=== PATIENT | female | born 1965 | race Hispanic/Latino ===

== ENCOUNTER 2017-09-20 17:02 | Emergency (ER) | payer MEDICAID ==
[2017-09-20 17:02] VITALS: BMI 19.1
[2017-09-20 18:12] VITALS: RESP 18; O2SAT 98
--- NOTE | 2017-09-20 18:39 | C.PDOC ---
History Of Present Illness 52 year old female with PMHx of asthma, seizures and bipolar disorder presents to the ED for evaluation of her depression and SI ideations. Patient states she is intermittent complaint with her bipolar medication Seroquel and see her psychiatrist Dr. Cardenas. Patient reports she snorts heroin and her last use was today OPHTHALMIC TECH. Patient reports she lives with her mother, she believes there are witches in her family that cursed her. Patient reports she has tried to hurt herself in the past. Patient denies fever, chills, nausea, vomit, diarrhea, abdominal pain, CP, SOB. Time Seen by Provider: 09/20/17 18:24 Chief Complaint (Nursing): Psychiatric Evaluation History Per: Patient History/Exam Limitations: no limitations Onset/Duration Of Symptoms: Hrs Suicide/Self Injury Attempted (Context): Cut Wrists Modifying Factor(s): Other (Heroin) Associated Symptoms: Depression, Suicidal Thoughts. denies: Suicidal Plan Involuntary Hold By: None Recent travel outside of the [place]: No Additional History Per: Patient Past Medical History Reviewed: Historical Data, Nursing Documentation, Vital Signs Vital Signs: Last Vital Signs Temp 97.8 F 09/20/17 18:07 Pulse 81 09/20/17 18:07 Resp 18 09/20/17 18:07 BP 122/77 09/20/17 18:07 Pulse Ox 98 09/20/17 18:41 - Medical History PMH: Anxiety, Asthma, Bipolar Disorder, Seizures (as a child) Denies: Depression, Chronic Kidney Disease Surgical History: No Surg Hx - [facility] Procedures NEBULIZER THERAPY (03/15/15) Family History: States: Unknown Family Hx - Social History Hx Tobacco Use: Yes Hx Alcohol Use: No Hx Substance Use: Yes (LAST USED TODAY) - Immunization History Hx Tetanus Toxoid Vaccination: No Hx Influenza Vaccination: No Hx Pneumococcal Vaccination: No Review Of Systems Constitutional: Negative for: Fever, Chills Cardiovascular: Negative for: Chest Pain, Palpitations Respiratory: Negative for: Cough, Shortness of Breath Gastrointestinal: Negative for: Nausea, Vomiting, Abdominal Pain Musculoskeletal: Negative for: Back Pain Skin: Negative for: Rash Neurological: Negative for: Weakness, Numbness Psych: Positive for: Depression, Suicidal ideation Physical Exam - Physical Exam Appears: Non-toxic, No Acute Distress Skin: Normal Color, Warm, Dry Head: Atraumatic, Normacephalic Nose: No Discharge, No Deformity Oral Mucosa: Moist Neck: Normal ROM, Supple Chest: Symmetrical Cardiovascular: Rhythm Regular, No Murmur Respiratory: Normal Breath Sounds, No Rales, No Rhonchi, No Wheezing Gastrointestinal/Abdominal: Soft, No Tenderness, No Distention, No Rebound Extremity: Normal ROM, No Pedal Edema, No Calf Tenderness, No Swelling Neurological/Psych: Oriented x3, Normal Speech, Normal Cognition Gait: Steady ED Course And Treatment - Laboratory Results Result Diagrams: 09/20/17 18:31 O2 Sat by Pulse Oximetry: 98 (On RA) Pulse Ox Interpretation: Normal Medical Decision Making Medical Decision Making: Impression : 52 y/o female depressed, used heroin with SI ideations. Plan: * Blood work * UA * Crisis contacted Disposition - Disposition Disposition Time: 18:53 Condition: STABLE Forms: [facility] (Upper Sorbian) - Clinical Impression Clinical Impression: Bipolar 1 disorder, Opioid abuse - Scribe Statement The provider has reviewed the documentation as recorded by the Scribe Burak Maradiaga All medical record entries made by the Scribe were at my direction and personally dictated by me. I have reviewed the chart and agree that the record accurately reflects my personal performance of the history, physical exam, medical decision making, and the department course for this patient. I have also personally directed, reviewed, and agree with the discharge instructions and disposition. Physician Patient Turnover Patient Signed Over To: Dario Reed Handoff Comments: pending medical clearance and crisis dispo
[2017-09-20 18:42] LABS: BASO % 0.9 % (0.0-2.0); EOS # 0.1 K/uL (0.0-0.7); EOS % 2.9 % (0.0-4.0); HEMATOCRIT 38.5 % (34.0-47.0); LYMPH # 1.7 K/uL (1.0-4.3); LYMPH % 39.6 % (20.0-40.0); MEAN CELL VOLUME 94.2 fL (81.0-99.0); MEAN CORPUSCULAR HEMOGLOBIN 32.1 pg (27.0-31.0); MEAN CORPUSCULAR HGB CONC 34.1 g/dL (33.0-37.0); MEAN PLATELET VOLUME 9.1 fL (7.2-11.7); MONO # 0.4 K/uL (0.0-0.8); MONO % 9.1 % (0.0-10.0); NRBC % 0.1 % (0.0-2.0); WHITE BLOOD COUNT 4.3 K/uL (4.8-10.8)
[2017-09-20 19:06] LABS: ALB/GLOB RATIO 1.1 (1.0-2.1); ALCOHOL SERUM < 10 mg/dl (0-10); ALKALINE PHOSPHATASE 71 U/L (38-126); ALT/SGPT 16 U/L (9-52); AST/SGOT 19 U/L (14-36); BILIRUBIN,TOTAL 0.5 mg/dL (0.2-1.3); BLOOD UREA NITROGEN 10 mg/dL (7-17); CALCIUM 8.5 mg/dl (8.6-10.4); CARBON DIOXIDE 31 mmol/L (22-30); CHLORIDE 98 mmol/L (98-107); GFR AFRICAN-AMERICAN > 60; GLUCOSE,RANDOM 95 mg/dL (65-105); POTASSIUM 4.1 mmol/L (3.6-5.2); SODIUM 134 mmol/L (132-148); TOTAL PROTEIN 7.5 g/dL (6.3-8.3)
[2017-09-20 19:35] LABS: RBC URINE 1 /hpf (0-3); URINE BACTERIA RARE (<OCC); URINE BILIRUBIN NEGATIVE (NEGATIVE); URINE BLOOD NEGATIVE (NEGATIVE); URINE COLOR Yellow (YELLOW); URINE GLUCOSE (UA) NORMAL (Normal); URINE KETONE NEGATIVE (NEGATIVE); URINE LEUKOCYTE ESTERASE NEG Leu/uL (Negative); URINE PROTEIN NEGATIVE (NEGATIVE); URINE UROBILINOGEN NORMAL mg/dL (0.2-1.0); WBC URINE < 1 /hpf (0-5)
[2017-09-20 23:33] VITALS: BP 135/86; PULSE 73; TEMP 97.7
== END 2017-09-20 23:55 | disposition home or self-care (01) ==
LOC: C.ER 17:02
DX: F31.9 Bipolar disorder, unspecified (principal); F11.10 Opioid abuse, uncomplicated

== ENCOUNTER 2017-09-22 17:11 | Inpatient (IN) | payer MEDICAID ==
[2017-09-22 17:18] VITALS: BMI 19.3
--- NOTE | 2017-09-22 17:41 | C.PDOC ---
History Of Present Illness 52 y/o female presents to ED for heroin detox. Patient states she uses 5 bags of heroin intranasal daily and reports last using earlier today. Patient was seen 2 days ago at ED requesting detox but no beds available. Patient then stated she was hearing voices and presents today pre screened for detox. No other physical complaints at this time. Time Seen by Provider: 09/22/17 17:22 Chief Complaint (Nursing): Substance Abuse History Per: Patient History/Exam Limitations: no limitations Onset/Duration Of Symptoms: Days Current Symptoms Are (Timing): Still Present Suicide/Self Injury Attempted (Context): None Past Medical History Reviewed: Historical Data, Nursing Documentation, Vital Signs Vital Signs: Last Vital Signs Temp 98.0 F 09/22/17 17:18 Pulse 87 09/22/17 17:18 Resp 17 09/22/17 17:18 BP 136/83 09/22/17 17:18 Pulse Ox 99 09/22/17 17:42 - Medical History PMH: Anxiety, Asthma, Bipolar Disorder, Seizures (as a child) Surgical History: No Surg Hx - [facility] Procedures NEBULIZER THERAPY (03/15/15) Family History: States: No Known Family Hx - Social History Hx Tobacco Use: Yes Hx Alcohol Use: No Hx Substance Use: Yes (LAST USED TODAY) - Immunization History Hx Tetanus Toxoid Vaccination: No Hx Influenza Vaccination: No Hx Pneumococcal Vaccination: No Review Of Systems Constitutional: Negative for: Fever Cardiovascular: Negative for: Chest Pain Respiratory: Negative for: Shortness of Breath Gastrointestinal: Negative for: Nausea, Vomiting Skin: Negative for: Rash Physical Exam - Physical Exam Appears: Non-toxic, No Acute Distress Skin: Normal Color, Warm, Dry, No Rash Head: Atraumatic, Normacephalic Oral Mucosa: Moist Neck: Supple Cardiovascular: Rhythm Regular Respiratory: Normal Breath Sounds, No Rales, No Rhonchi, No Wheezing Gastrointestinal/Abdominal: Soft, No Tenderness, No Guarding, No Rebound Extremity: Normal ROM, Capillary Refill (<2 seconds) Neurological/Psych: Oriented x3 ED Course And Treatment - Laboratory Results Result Diagrams: 09/22/17 17:59 09/22/17 17:59 Lab Interpretation: Abnormal (tox + Barbiturates (Fioricet), opiates, benzo's. ASA/Tylenol neg.) O2 Sat by Pulse Oximetry: 99 (RA) Pulse Ox Interpretation: Normal Medical Decision Making Medical Decision Making: prescreen for opiate detox tox + opiates, benzo's and Barbiturates. Disposition Doctor Will See Patient In The: Hospital Counseled Patient/Family Regarding: Studies Performed, Diagnosis - Disposition Disposition: HOSPITALIZED Disposition Time: 19:21 Condition: GOOD Forms: [facility] (Malaysian) - Clinical Impression Clinical Impression: Opiate dependence, continuous - Scribe Statement The provider has reviewed the documentation as recorded by the Jevon Lomeli All medical record entries made by the Daliibalexsandra were at my direction and personally dictated by me. I have reviewed the chart and agree that the record accurately reflects my personal performance of the history, physical exam, medical decision making, and the department course for this patient. I have also personally directed, reviewed, and agree with the discharge instructions and disposition.
[2017-09-22 18:03] LABS: BASO # 0.1 K/uL (0.0-0.2); BASO % 0.8 % (0.0-2.0); HEMATOCRIT 39.5 % (34.0-47.0); LYMPH # 1.2 K/uL (1.0-4.3); LYMPH % 18.9 % (20.0-40.0); MEAN CELL VOLUME 93.7 fL (81.0-99.0); MEAN CORPUSCULAR HEMOGLOBIN 32.3 pg (27.0-31.0); MEAN CORPUSCULAR HGB CONC 34.4 g/dL (33.0-37.0); MEAN PLATELET VOLUME 9.4 fL (7.2-11.7); MONO # 0.5 K/uL (0.0-0.8); WHITE BLOOD COUNT 6.5 K/uL (4.8-10.8)
[2017-09-22 18:14] LABS: RBC URINE 5 /hpf (0-3); TRANSITIONAL EPITHIAL < 1 /hpf (0-3); URINE BACTERIA RARE (<OCC); URINE BILIRUBIN NEGATIVE (NEGATIVE); URINE BLOOD 1+ (NEGATIVE); URINE COLOR Yellow (YELLOW); URINE GLUCOSE (UA) NORMAL (Normal); URINE KETONE NEGATIVE (NEGATIVE); URINE LEUKOCYTE ESTERASE NEG Leu/uL (Negative); URINE PROTEIN NEGATIVE (NEGATIVE); WBC URINE 2 /hpf (0-5)
[2017-09-22 18:41] LABS: ALB/GLOB RATIO 1.8 (1.0-2.1); ALCOHOL SERUM < 10 mg/dl (0-10); ALKALINE PHOSPHATASE 62 U/L (38-126); ALT/SGPT 11 U/L (9-52); AST/SGOT 15 U/L (14-36); BILIRUBIN,TOTAL 0.5 mg/dL (0.2-1.3); BLOOD UREA NITROGEN 17 mg/dL (7-17); CALCIUM 8.7 mg/dl (8.6-10.4); CARBON DIOXIDE 28 mmol/L (22-30); CHLORIDE 105 mmol/L (98-107); GFR AFRICAN-AMERICAN > 60; GLUCOSE,RANDOM 102 mg/dL (65-105); POTASSIUM 3.5 mmol/L (3.6-5.2); SODIUM 139 mmol/L (132-148); TOTAL PROTEIN 6.1 g/dL (6.3-8.3)
--- NOTE | 2017-09-22 22:12 | PCM.BM ---
<Celia Conner - Last Filed: 09/22/17 22:11> Treatment Plan Problems - Problems identified on initial assessmt potential for opiates withdrawal Date Initiated: 09/22/17 Time Initiated: 22:11 Assessment reference: NA Status: Active anxiety Date Initiated: 09/22/17 Time Initiated: 22:12 Assessment reference: NA Status: Active - Milieu Protocol Maintain good personal hygiene: daily Encourage regular showers, daily Remind patient to perform daily oral care, daily Assist patient to perform ADL's Conduct patient checks and document Observation sheet: Q15 minutes Maintain personal safety: every shift Educate patient to report safety concerns to staff, every shift Monitor environment for contraband/sharps Medication safety: Monitor for expected outcome, potential side effects: every shift, Assess barriers to learning: every shift, Assess readiness for medication education: every shift <Shea Yoder - Last Filed: 09/24/17 17:53> - Diagnosis (1) Opiate dependence, continuous Status: Acute Interventions: 09/24/17 17:53 * Assess 7x/week regarding severity of withdrawal * Educate regarding risks, benefits, side effects and alternatives of medications * Use Motivational Interviewing for abstinence * Use CBT for relapse prevention * Medication management for withdrawal symptoms * Encourage medication assisted treatment *
[2017-09-23] MEDS: Multiple Vitamins Tab PO SCH (10:57)
[2017-09-23] MEDS: Pantoprazole 20 mg EC Tab PO SCH (12:14)
--- NOTE | 2017-09-23 13:29 | PCM.PSYCH ---
Initial Psychiatric Evaluation - Initial Psychiatric Evaluation Type of Admission: Voluntary Legal Status: Capacity Chief Complaint (in patient's own words): I need opioid detox History of Present Illness and Precipitating Events: Pt is a52 year old single female admitted for heroin detox. Pt reports her last use of heroin was one day ago at 6pm and used 3 bags intranasally. Pt reports using 20 bags of heroin intranasally on daily basis for many years. Pt stated that she had multiple rehabs and detox in the past including at [facility] and in [facility]. Pt states she is currently experiencing withdrawal symptoms of weakness, cough, nausea, diarrhea. Pt is under the care of psychiatrist Dr. Mckeon last seen last month. Pt is being prescribed xanax 1 mg 4 times a day for the last more than 2 years. [place]. Patient stated that she is taking Xanax times a day for anxiety. Patient stated she tried to detox from opioids 6 months ago and also stopped taking Xanax and had withdrawal symptoms including seizures. Patient stated that she was admitted in the hospital and received a treatment. Patient reported that she is interested in rehabilitation after discharge. Pt denies psychiatric admissions. Pt reports poor sleep and appetite with 20 lbs of weight loss in 6 months. Pt reports being disabled for the last 5 months. Pt does not report any other stressors. Current Medications: Active Medications Generic Name Dose Route Start Last Admin Trade Name Freq PRN Reason Stop Dose Admin Chlordiazepoxide 25 mg 09/23/17 00:00 09/23/17 11:00 Librium PO 09/27/17 23:59 25 mg Q4 JARON Administration Taper Clonidine HCl 0.1 mg 09/22/17 19:48 09/22/17 22:32 Catapres PO 0.1 mg Q8 PRN Administration COWS Score More or Equal to 5 Dicyclomine HCl 10 mg 09/22/17 19:52 Bentyl PO QID PRN stomach cramps Folic Acid 1 mg 09/23/17 10:00 09/23/17 10:57 Folic Acid PO 1 mg DAILY JARON Administration Ibuprofen 400 mg 09/22/17 19:51 Motrin Tab PO Q6H PRN Pain, moderate (4-7) Loperamide HCl 2 mg 09/22/17 19:48 Imodium PO Q8 PRN Diarrhea Methadone HCl 20 mg 09/23/17 09:46 09/23/17 10:56 Methadone PO 09/27/17 09:45 20 mg DAILY PRN Administration Opioid Withdrawal Symptoms Taper Multivitamins 1 tab 09/23/17 10:00 09/23/17 10:57 Hexavitamin PO 1 tab DAILY JARON Administration Ondansetron HCl 4 mg 09/22/17 19:48 Zofran Tab PO Q8 PRN Nausea/Vomiting Pantoprazole Sodium 20 mg 09/23/17 12:00 09/23/17 12:14 Protonix Ec Tab PO 20 mg DAILY JARON Administration Pneumococcal Polyvalent Vaccine 0.5 ml 09/25/17 10:00 Pneumovax 23 Vaccine IM 09/25/17 10:01 .ONCE ONE Thiamine HCl 100 mg 09/23/17 10:00 09/23/17 10:57 Vitamin B1 Tab PO 100 mg DAILY JARON Administration Trazodone HCl 50 mg 09/22/17 19:49 09/22/17 22:32 Desyrel PO 50 mg HS PRN Administration Insomnia Past Psychiatric History - Past Psychiatric History Previous Treatment History: Inpatient Prior Professional Help: Detox and the multiple rehabs Prior Psychiatric Treatment: Xanax 1 mg oral 4 times a day through Dr[facility] Carden[facility]: She denied any past psychiatric admissions History of Abuse: Patient denied History of ETOH/Drug Use: Please see HPI Patient denied other using drugs including alcohol, patient denied using or taking barbiturates History of Family Illness: Denied Pertinent Medical Hx (Current Medical&Sleep Prob, Allergies): Allergies Allergy/AdvReac Type Severity Reaction Status Date / Time No Known Allergies Allergy Verified 09/22/17 17:16 ALPRAZolam [Xanax] 1 mg PO QID 12/18/16 Review of Systems - Review of Systems All systems: reviewed and no additional remarkable complaints except (Please see HPI) - Constitutional Constitutional: Chills, Sweats, Malaise - EENT Eyes: As Per HPI, Discharge Nose/Mouth/Throat: Nasal Congestion - Respiratory Respiratory: UNREMARKABLE - Gastrointestinal Gastrointestinal: Bloating, Cramping, Diarrhea - Genitourinary Genitourinary: UNREMARKABLE - Reproductive: Female Reproductive:Female: UNREMARKABLE - Menstruation Menstruation: UNREMARKABLE - Musculoskeletal Musculoskeletal: Muscle Cramps - Integumentary Integumentary: UNREMARKABLE - Neurological Neurological: UNREMARKABLE Mental Status Examination - Personal Presentation Personal Presentation: Looks younger than stated age - Affect Affect: Constricted - Motor Activity Motor Activity: Psychomotor Agitation - Reliability in Providing Information Reliability in Providing Information: Good - Speech Speech: Organized - Mood Mood: Anxious - Formal Thought Process Formal Thought Process: No Impairment - Hallucinations/Delusions Delusions: Other (Denied) - Obsessions/Compulsions Obsessions: No Compulsions: No - Cognitive Functions Orientation: Person, Place, Situation, Time Sensorium: Alert Attention/Concentration: Attentive Abstract Thinking: Primrose Estimate of Intelligence: Average Judgement: Intact, as evidence by: Good judgement, Intact, as evidence by: Insight regarding need for hospitalization Memory: Recent intact, as evidence by: Ability to recall events of the day - Risk Risk: Seizure, Withdrawal - Strength & Assets Inventory Strength & Assets Inventory: Intelligence, Education, Spiritual affiliations, Cooperative - Limitations Limitations: Other (Chronic opioid use and anxiety) DSM 5 DX - DSM 5 DSM 5 Diagnosis: Opioid dependence, severe, withdrawal symptoms Hypnotic dependence, withdrawal symptoms - Recommended/Plan of Treatment Treatment Recommendations and Plan of Treatment: Methadone taper for opioid detox, Librium taper for Xanax detox Gabapentin for augmentation As needed meds and vitamins Attend groups and activities [place] for abstinence and CBT for relapse prevention Support and psychoeducation Consider and encourage MAT~ Refer to after care 33 min Prognosis: Good with medication compliance - Smoking Cessation Smoking Cessation Initiated: Yes
[2017-09-24] MEDS: Multiple Vitamins Tab PO SCH (09:33)
[2017-09-24] MEDS: Pantoprazole 20 mg EC Tab PO SCH (09:33)
--- NOTE | 2017-09-24 12:28 | PCM.PYCHPN ---
Psychiatric Progress Note - Psychiatric Progress Note Patient seen today, length of contact: 16 min Patient Chief Complaint: "I couldn't sleep well" Problems Identified/Issues Discussed: The pt is seen, chart reviewed, case discussed with staff. The pt is compliant with medications and reports no side-effects. Symptoms are improving but needs more time to stabilize. After care discussed, support and psychoeducation given. Medication Change: Yes (detox changes daily) Medical Record Reviewed: Yes Mental Status Examination - Cognitive Function Orientation: Person, Place, Situation, Time Memory: Intact Attention: WNL Concentration: Poor Association: WNL Fund of Knowledge: WNL - Mood Mood: Anxious - Affect Affect: Constricted - Speech Speech: Appropriate - Formal Thought Process Formal Thought Process: No Impairment - Suicidal Ideation Suicidal Ideation: No - Homicidal Ideation Homicidal Ideation: No Goal/Treatment Plan - Goal/Treatment Plan Need for Continued Stay: Discharge may exacerbated symptoms, Severe functional impairment Progress Toward Problem(s) and Goals/Treatment Plan: Methadone detox Librium detox Seroquel As needed medications Attend groups and activities Supportive therapy and psychoeducation [place] for abstinence CBT for relapse prevention Encourage MAT Refer to rehab or IOP Attend self-help groups as well
[2017-09-25] MEDS ORDERED: Pneumococcal 23-Valent Vaccine IM ONE (10:00)
[2017-09-25] MEDS ORDERED: Influenza Vaccine 60 mcg/0.5 mL SYR (4YR UP) IM ONE (10:00)
[2017-09-25] MEDS: Multiple Vitamins Tab PO SCH (10:32)
[2017-09-25] MEDS: Pantoprazole 20 mg EC Tab PO SCH (10:32)
--- NOTE | 2017-09-25 13:21 | PCM.PYCHPN ---
Psychiatric Progress Note - Psychiatric Progress Note Patient seen today, length of contact: 16 min Patient Chief Complaint: "I have nausea and backache" Problems Identified/Issues Discussed: The pt is seen, chart reviewed, case discussed with staff. patient reported that she still had the nausea backache and withdrawal symptoms patient also reported that she is allergic to Zofran and cannot take. The pt is compliant with medications and reports no side-effects. Symptoms are improving but needs more time to stabilize. After care discussed, support and psychoeducation given. DSM 5 Symptoms Update: opioid use disorder severe, with withdrawal symptoms Hypnotic abuse disorder severe, with withdrawal symptoms Medication Change: Yes (detox changes daily) Medical Record Reviewed: Yes Mental Status Examination - Cognitive Function Orientation: Person, Place, Situation, Time Memory: Intact Attention: WNL Concentration: Poor Association: WNL Fund of Knowledge: WNL Decription of patient's judgement and insights: fair/fair - Mood Mood: Anxious - Affect Affect: Constricted - Speech Speech: Appropriate - Formal Thought Process Formal Thought Process: No Impairment Psychotic Thoughts and Behaviors: denied, patient was anxious, but cooperative - Suicidal Ideation Suicidal Ideation: No Plan: denied - Homicidal Ideation Homicidal Ideation: No Plan: denied Goal/Treatment Plan - Goal/Treatment Plan Need for Continued Stay: Discharge may exacerbated symptoms, Severe functional impairment Progress Toward Problem(s) and Goals/Treatment Plan: Methadone taper for opioid detox, Librium taper for Xanax detox start promethazine prn for nausea Start lidocaine patch for backpain Gabapentin for augmentation As needed meds and vitamins Attend groups and activities [place] for abstinence and CBT for relapse prevention Support and psychoeducation Consider and encourage MAT Refer to after care
[2017-09-26 06:17] VITALS: O2SAT 99
[2017-09-26] MEDS: Pantoprazole 20 mg EC Tab PO SCH (09:34)
[2017-09-26] MEDS: Multiple Vitamins Tab PO SCH (09:34)
[2017-09-26 12:22] VITALS: BP 111/71; PULSE 69; RESP 19; TEMP 97.6
--- NOTE | 2017-09-26 16:39 | PCM.PYCHDC ---
Mental Status Examination - Mental Status Examination Orientation: Person, Place, Situation, Time Memory: Intact Mood: Neutral Affect: Other (Appropriate) Speech: Appropriate Attention: WNL Concentration: WNL Association: WNL Fund of Knowledge: WNL Formal Thought Process: No Impairment Description of patient's judgement and insight: Fair Psychotic Thoughts and Behaviors: None Suicidal Ideation: No Current Homicidal Ideation?: No Discharge Summary - Discharge Note Reason for Hospitalization: Opiate use disorder Anxiolytics use disorder Laboratory Data: Reviewed Consultations:: List each consultation separately and include: 1. Reason for request. 2. Findings. 3. Follow-up Summary of Hospital Course include:: 1. Description of specific treatment plan utilized for patients during their course of treatmen. 2. Summarize the time- course for resolution of acute symptoms and/or regressed behaviors. 3. Describe issues identified and worked on during hospitalization. 4. Describe medication utilized. 5. Describe medical problems identified and treated. 6. Reassessment of suicide risk Summary of Hospital Course: Pt is a52 year old single female admitted for heroin detox. Pt reports her last use of heroin was one day ago at 6pm and used 3 bags intranasally. Pt reports using 20 bags of heroin intranasally on daily basis for many years. Pt stated that she had multiple rehabs and detox in the past including at [facility] and in [facility]. Pt states she is currently experiencing withdrawal symptoms of weakness, cough, nausea, diarrhea. Pt is under the care of psychiatrist Dr. Mckeon last seen last month. Pt is being prescribed xanax 1 mg 4 times a day for the last more than 2 years. [place] Patient stated that she is taking Xanax times a day for anxiety. Patient stated she tried to detox from opioids 6 months ago and also stopped taking Xanax and had withdrawal symptoms including seizures. Patient stated that she was admitted in the hospital and received a treatment. Patient reported that she is interested in rehabilitation after discharge. Pt denies psychiatric admissions. Pt reports poor sleep and appetite with 20 lbs of weight loss in 6 months. Pt reports being disabled for the last 5 months. Pt does not report any other stressors. During her stay in the hospital patient was treated with Librium, methadone, Seroquel and trazodone. Patient received other when necessary medications. Was treatment and psychotherapy was staying on the unit patient started feeling better with no withdrawal symptoms. Today patient was stable and ready for discharge. At the time of evaluation and discharge, patient was awake alert oriented 3, had no delusions, no auditory or visual hallucinations, no suicidal ideations or homicidal ideations. Patient was discharged in a stable condition. Patient will go to [facility] for follow-up care with a psychiatrist. - Final Diagnosis (DSM 5) Condition upon Discharge: GOOD Disposition: HOME/ ROUTINE Prescriptions/Medication Reconciliation: Pantoprazole [Protonix EC Tab] 20 mg PO DAILY #30 ect QUEtiapine [SEROquel] 50 mg PO HS #30 tab traZODone [Desyrel] 100 mg PO HS PRN #30 tab PRN Reason: Insomnia - Smoking Cessation Smoking Cessation Medication prescribed: No - Antipsychotic Medications Pt discharged on 2 or more routine antipsychotic medications: No
== END 2017-09-26 13:00 | disposition home or self-care (01) | DRG 745 ==
LOC: C.ER 17:11 → C.7D 19:19
PROVIDERS: ADMIT Psychiatry & Neurology Psychiatry; ATTEND Psychiatry & Neurology Psychiatry
DX: F11.23 Opioid dependence with withdrawal (principal); F41.9 Anxiety disorder, unspecified; F14.23 Cocaine dependence with withdrawal